=== PATIENT | male | born 1980 | race Caucasian/White ===

== ENCOUNTER 2021-12-18 13:07 | Emergency (ER) | payer MEDICAID ==
[~2021-12-18] VITALS: Ht 175.3 cm; Wt 86.0 kg
[2021-12-18] MEDS ORDERED: ALBUTEROL 6.7GM HFA INHALER ORI ONE (14:30)
[2021-12-18] MEDS ORDERED: PREDNISONE 20MG TABLET PO SCH (14:30)
[2021-12-18] MEDS ORDERED: P50 MT (15:06)
[2021-12-18] MEDS ORDERED: ALBU6.7H9 INH (15:07)
[2021-12-18 15:19] VITALS: BP 141/67
== END 2021-12-18 15:20 | disposition home or self-care (01) ==
LOC: ER 13:07
DX: J40 Bronchitis, not specified as acute or chronic (principal); B34.9 Viral infection, unspecified; I49.8 Other specified cardiac arrhythmias; Z86.16 Personal history of COVID-19
CPT/HCPCS: 71045; 93005; 94640; 99285; J7512; Z7610